=== PATIENT | female | born 2000 | race American Indian/Alaskan Native ===

== ENCOUNTER 2020-02-26 09:15 | Emergency (ER) | payer SELFPAY ==
[2020-02-26 09:23] VITALS: BP 151/71
[2020-02-26] MEDS ORDERED: IBUPROFEN 800 MG TAB PO ONE (10:16)
[2020-02-26] MEDS ORDERED: CYCLOBENZAPRINE 10 MG TAB PO ONE (10:16)
--- NOTE | 2020-02-26 10:45 | XRay Report ---
CERVICAL SPINE 3 VIEWS 1032 INDICATION: NECK PAIN COMPARISON: None available. FINDINGS: Mild loss of lordosis is seen. No soft tissue swelling is noted. Disc spaces are maintained . Mild scoliosis is noted. No fractures or subluxations are seen. Signer Name: Delgado Holt MD Signed: 02/26/2020 10:41 AM Workstation Name: [id number]
--- NOTE | 2020-02-26 10:57 | Emergency Department Report ---
ED Neck Pain/Injury HPI - General Chief Complaint: Neck Pain/Injury Stated Complaint: NECK PAIN Time Seen by Provider: 02/26/20 10:04 Mode of arrival: Ambulatory Limitations: No Limitations - History of Present Illness Initial Comments: Patient states she sat up in bed and tilted her head forward and heard a pop a pop yesterday. Since then she is has been experiencing neck pain and stiffness radiating across her shoulder. She denies any recent falls or injuries MD Complaint: neck pain -: days(s) (1) Place: home Radiation: right shoulder Severity: moderate Consistency: constant Improves With: none Worsens With: movement of neck Associated Symptoms: denies: numbness, tingling, weakness, vertigo, difficulty walking, difficulty swallowing, nausea Treatments Prior to Arrival: none - Related Data Previous Rx's Medication Instructions Recorded Last Taken Type Cyclobenzaprine [Flexeril] 10 mg PO TID PRN #15 tablet 02/26/20 Unknown Rx Ibuprofen [Motrin] 800 mg PO Q8HR PRN #20 tablet 02/26/20 Unknown Rx Allergies Allergy/AdvReac Type Severity Reaction Status Date / Time No Known Allergies Allergy Unverified 02/26/20 09:17 ED Review of Systems ROS: Stated complaint: NECK PAIN Other details as noted in HPI Comment: All other systems reviewed and negative Constitutional: no symptoms reported. denies: chills, fever ENT: denies: ear pain, throat pain, hearing loss Respiratory: denies: cough, SOB with exertion Cardiovascular: denies: chest pain, palpitations Endocrine: denies: no symptoms reported Gastrointestinal: denies: nausea, vomiting Musculoskeletal: denies: back pain ED Past Medical Hx - Surgical History Past Surgical History?: No - Social History Smoking Status: Never Smoker Substance Use Type: Alcohol - Medications Home Medications: Home Medications Medication Instructions Recorded Confirmed Last Taken Type Cyclobenzaprine [Flexeril] 10 mg PO TID PRN #15 tablet 02/26/20 Unknown Rx Ibuprofen [Motrin] 800 mg PO Q8HR PRN #20 tablet 02/26/20 Unknown Rx ED Physical Exam - General Limitations: No Limitations General appearance: alert, in no apparent distress - Head Head exam: Present: atraumatic - Eye Eye exam: Present: normal appearance - ENT ENT exam: Present: mucous membranes moist - Neck Neck exam: Present: tenderness, other (+ vertebral tendrness to base of the neck . Raises both arms above her heack with ease) - Respiratory Respiratory exam: Present: normal lung sounds bilaterally - Cardiovascular Cardiovascular Exam: Present: regular rate, normal heart sounds - Extremities Exam Extremities exam: Present: normal inspection, full ROM - Back Exam Back exam: Present: normal inspection - Neurological Exam Neurological exam: Present: alert, oriented X3 - Psychiatric Psychiatric exam: Present: normal affect - Skin Skin exam: Present: warm, dry, intact ED Course Vital Signs 02/26/20 09:19 Temperature 98.5 F Pulse Rate 95 H Respiratory 18 Rate Blood Pressure 151/71 O2 Sat by Pulse 99 Oximetry Critical care attestation.: If time is entered above; I have spent that time in minutes in the direct care of this critically ill patient, excluding procedure time. ED Disposition Clinical Impression: Torticollis, acute Disposition: DC-01 TO HOME OR SELFCARE Is pt being admited?: No Does the pt Need Aspirin: No Condition: Stable Instructions: Spasmodic Torticollis (ED) Additional Instructions: Apply warm compress. Take medication as prescribed. Follow up with PCP in 3-5 days. The x-ray of your neck shows no signs of fracture or subluxation Prescriptions: Cyclobenzaprine [Flexeril] 10 mg PO TID PRN #15 tablet PRN Reason: Muscle Spasm Ibuprofen [Motrin] 800 mg PO Q8HR PRN #20 tablet PRN Reason: Pain , Severe (7-10) Referrals: PRIMARY CARE, [Primary Care Provider] - 3-5 Days Time of Disposition: 10:55
== END 2020-02-26 11:30 | disposition home or self-care (01) ==
LOC: ED 09:15
DX: M43.6 Torticollis (principal); Z79.899 Other long term (current) drug therapy
CPT/HCPCS: 72040